=== PATIENT | female | born 1960 | race Caucasian/White ===

== ENCOUNTER → 2023-09-17 | Outpatient (CLI) | payer MEDICARE | END | disposition home or self-care (01) | LOC: RESCLI 09:08 | PROVIDERS: ATTEND Student in an Organized Health Care Education/Training Program | DX: G90.50 Complex regional pain syndrome I, unspecified (principal); M48.061 Spinal stenosis, lumbar region without neurogenic claudication; G37.9 Demyelinating disease of central nervous system, unspecified; F41.9 Anxiety disorder, unspecified; R63.4 Abnormal weight loss; I10 Essential (primary) hypertension; K21.9 Gastro-esophageal reflux disease without esophagitis; G25.81 Restless legs syndrome; M79.7 Fibromyalgia; G62.9 Polyneuropathy, unspecified; Z79.899 Other long term (current) drug therapy; Z88.8 Allergy status to other drugs, medicaments and biological substances ==

== ENCOUNTER → 2024-09-25 | Outpatient (CLI) | payer MEDICARE | END | disposition home or self-care (01) | LOC: RESCLI 03:08 | PROVIDERS: ATTEND Internal Medicine | DX: G90.50 Complex regional pain syndrome I, unspecified (principal); F41.9 Anxiety disorder, unspecified; I10 Essential (primary) hypertension; K21.9 Gastro-esophageal reflux disease without esophagitis; G25.81 Restless legs syndrome; Z79.899 Other long term (current) drug therapy; Z98.890 Other specified postprocedural states; Z88.8 Allergy status to other drugs, medicaments and biological substances ==